=== PATIENT | female | born 1940 | race Caucasian/White ===

== ENCOUNTER 2016-10-03 12:47 | Emergency (ER) | payer OTHER, MEDICARE ==
[~2016-10-03] VITALS: Ht 160 cm; Wt 99.8 kg
[2016-10-03 13:14] LABS: ABSOLUTE BASOPHIL COUNT 0 /CUMM (0.0-0.2); ABSOLUTE EOSINOPHIL COUNT 0 /CUMM (0.0-0.7); ABSOLUTE LYMPH COUNT 0.6 /CUMM (1.2-3.4); ABSOLUTE MONOCYTE COUNT 0.5 /CUMM (0.10-0.60); BASOPHIL % 0 % (0.0-2.0); EOSINOPHIL % 0 % (0-5); GRANULOCYTE % 90.8 % (42.2-75.2); HEMATOCRIT 45.6 % (37-47); MEAN CORPUSCULAR HGB 29.3 PG (27.0-31.0); MEAN CORPUSCULAR HGB CONC 32.9 G/DL (33.0-37.0); MEAN PLATELET VOLUME 7.5 FL (7.4-10.4); PLATELET COUNT 213 /CUMM (130-400); RBC DISTRIBUTION WIDTH 13.6 % (11.5-14.5); RED BLOOD CELL CT 5.13 /CUMM (4.20-5.40)
--- NOTE | 2016-10-03 14:35 | ED GI/GU/ABDOMINAL COMPLAINT ---
History of Present Illness General Chief Complaint: Abdominal Pain/Flank Pain Stated Complaint: ABD PAIN +N Source: patient, family Exam Limitations: no limitations Vital Signs & Intake/Output Vital Signs & Intake/Output Vital Signs Date Time Temp Pulse Resp B/P Pulse O2 O2 Flow FiO2 Ox Delivery Rate 10/03 1443 98.5 56 18 177/81 96 Room Air 10/03 1258 96.6 805 20 160/85 97 Room Air Allergies Coded Allergies: NO KNOWN ALLERGIES (02/11/14) Reconcile Medications Amlodipine Besylate 5 MG TABLET 1 TAB PO QPM HEART (Reported) Esomeprazole (Nexium) 40 MG CAPSULE.DR 1 CAP PO DAILY GI (Reported) Fluticasone/Vilanterol (Breo Ellipta 100-25 Mcg INH) 100 MCG-25 MCG/DOSE BLST.W.DEV 1 INH PO DAILY BREATHING PROBLEMS (Reported) Furosemide 40 MG TABLET 1 TAB PO DAILY PRN WATER PILL (Reported) Losartan Potassium 100 MG TABLET 1 TAB PO DAILY HEART (Reported) Ondansetron (Zofran Odt) 4 MG TAB.RAPDIS 1 TAB SL TID PRN NAUSEA Potassium Chloride 20 MEQ TAB.ER.PRT 1 TAB PO DAILY SUPPLEMENT (Reported) Sulfasalazine (Sulfasalazine Dr) 500 MG TABLET.DR 2 TAB PO BID UNKNOWN ( Reported) Triage Note: PT TO ED C/O ABD PAIN, NAUSEA SINCE LAST NIGHT. STATES SHE ATE A DONUT THAT WAS IN THE FREEZER, AND THE PAIN STARTED SHORTLY AFTER. DENIES S/S. Triage Nurses Notes Reviewed? yes ? N Is pt currently ? No HPI: 76-year-old female with central abdominal pain that started last night after eating a donut that she had a freezer, it was a cream donut. Started in the middle the night with central abdominal pain is nonradiating, nausea and vomiting several times. She is passing gas and had small amount of loose bowel movement. Pain is currently radiating to the bilateral flank regions. No pain radiating into the back. No chest pain or shortness of breath. She has had a tactile fever and chills. Her symptoms are moderate, she has epigastric burning secondary to vomiting. No previous abdominal surgeries. Her symptoms are moderate. Past History Travel History Traveled to [place] past 21 day No Medical History Any Pertinent Medical History? see below for history Cardiovascular: hypertension Respiratory: asthma Surgical History Surgical History: non-contributory Psychosocial History What is your primary language Thai Tobacco Use: Never used ETOH Use: denies use Illicit Drug Use: denies illicit drug use Family History Hx Contributory? No Review of Systems Review of Systems Constitutional: Reports: see HPI. EENTM: Reports: no symptoms. Respiratory: Reports: no symptoms. Cardiovascular: Reports: no symptoms. GI: Reports: see HPI. Genitourinary: Reports: no symptoms. Musculoskeletal: Reports: no symptoms. Skin: Reports: no symptoms. Neurological/Psychological: Reports: no symptoms. Hematologic/Endocrine: Reports: no symptoms. Immunologic/Allergic: Reports: no symptoms. All Other Systems: Reviewed and Negative Physical Exam Physical Exam Respiratory: normal breath sounds, chest non-tender, no respiratory distress Cardiovascular: regular rate/rhythm Gastrointestinal: normal bowel sounds, soft, MILD GENERALIZED CENTRAL ABDOMINAL TENDERNESS IN THE PERIUMBILICAL REGION. nEGATIVE [place] SIGN, NO mCbURNEY'S POINT TENDERNESS. Comments: Well-developed well-nourished no apparent distress. HEENT: Atraumatic, extraocular motion intact Neck: Supple, no lymphadenopathy Back: Nontender Respiratory: No respiratory distress Extremities: No edema, full range of motion Neuro: Alert and oriented x3 Psych: Mood affect normal, normal memory normal judgment. Skin: Warm and dry, no rash on exposed skin Core Measures ACS in differential dx? No Severe Sepsis Present: No Septic Shock Present: No Progress Differential Diagnosis: AAA, AMI, appendicitis, biliary colic, bowel obstruction , colon cancer, cholecystitis, diverticulitis, ectopic , endometritis, esophageal varices, gastritis, hepatitis, hernia, hemorrhoids, ischemic bowel, inflamm bowel dis, intrauterine , kidney stone, Chantal-Ryan tear, ovarian cyst, ovarian torsion, pancreatitis, PID/cervicitis, peptic ulcer, PUD/ GERD, perforated viscous, SBO, threatened AB, UTI/pyelo Plan of Care: Orders Procedure Date/time Status Add-on Test (ER Only) 10/03 1351 Active Add-on Test (ER Only) 10/03 1330 Active MAGNESIUM 10/03 1303 Complete LIPASE 10/03 1303 Complete AMYLASE 10/03 1303 Complete COMPREHENSIVE METABOLIC PANEL 10/03 1257 Complete CBC WITHOUT DIFFERENTIAL 10/03 1257 Complete EKG 10/03 1249 Active Laboratory Tests 10/03/16 1303: Anion Gap 10, Estimated GFR > 60, BUN/Creatinine Ratio 21.4, Glucose 135 H, Calcium 9.2, Magnesium 1.8, Total Bilirubin 0.8, AST 28, ALT 40, Alkaline Phosphatase 107, Total Protein 7.3, Albumin 4.1, Globulin 3.2, Albumin/Globulin Ratio 1.3, Amylase 36, Lipase 103, CBC w Diff MAN DIFF ORDERED, RBC 5.13, MCV 89.0, MCH 29.3, RDW 13.6, MPV 7.5, Gran % 90.8 H, Lymphocytes % 5.0 L, Monocytes % 4.2, Eosinophils % 0, Basophils % 0 L, Absolute Granulocytes 10.0 H, Absolute Lymphocytes 0.6 L, Absolute Monocytes 0.5, Absolute Eosinophils 0, Absolute Basophils 0, Platelet Estimate ADEQUATE, Normocytic RBCs VERIFIED, Normochromic RBCs VERIFIED, PUBS MCHC 32.9 L Diagnostic Imaging: Viewed by Me: CT Scan. Discussed w/RAD: CT Scan. Radiology Impression: PATIENT: MARLEN HICKEY PRESENT AGE: 76 PATIENT ACCOUNT NO: [id number] : 41 LOCATION: [facility] ORDERING PHYSICIAN: KATE BARKSDALE SERVICE DATE: 10/03/16 EXAM TYPE : CAT - CT ABD & PELVIS W IV CONTRAST EXAMINATION: CT ABDOMEN AND PELVIS WITH CONTRAST CLINICAL INFORMATION: Pain. Nausea and vomiting. COMPARISON: None TECHNIQUE: Multidetector volumetric imaging was performed of the abdomen and pelvis before and after the IV administration of 94 mL of Optiray 320 intravenous contrast. Sagittal and coronal reformatted images were obtained on the technologist's workstation. DLP: 1287 mGy-cm FINDINGS: LUNG BASES: Bibasilar subsegmental atelectasis. Coronary artery calcifications noted. LIVER, GALLBLADDER, AND BILIARY TREE: The liver is normal in size, shape, and attenuation. There is a 0.5 cm hypoattenuating lesion in segment 5 of the liver which is too small to characterize. No additional focal hepatic lesion or biliary ductal dilatation is present. Gallstones are seen within the gallbladder lumen. No gallbladder wall thickening or pericholecystic fluid. PANCREAS: Small calcification seen along the body of the pancreas are likely vascular in nature. The pancreas is otherwise unremarkable. SPLEEN: Unremarkable. ADRENAL GLANDS: Unremarkable. KIDNEYS AND URETERS: The kidneys are normal in size, shape, and attenuation. No hydronephrosis, hydroureter, or calculi seen. No perinephric stranding. Mild cortical thinning at the lower pole of the right kidney. Subcentimeter hypoattenuating lesion at the upper pole of the right kidney is too small to characterize. BLADDER: Unremarkable. GASTROINTESTINAL TRACT: Small hiatal hernia. High attenuation material is seen within the gastric lumen, likely ingested. No bowel obstruction. There is no colonic wall thickening or inflammatory change. A majority of the colon is decompressed. No free air or free fluid. ABDOMINAL WALL: There is a ventral hernia containing fat and fluid. The abdominal wall defect measures 1.1 cm in CC dimension. LYMPH NODES: Normal. VASCULAR: Mild atherosclerotic calcifications. PELVIC VISCERA: The uterus is not seen. No adnexal mass. OSSEOUS STRUCTURES: No acute or suspicious osseous abnormality. Moderate multilevel degenerative changes are seen throughout the spine with multilevel vacuum disc phenomenon. Endplate osteophyte formation seen at multiple levels. Disc space narrowing is most prominent at T8-T9 and L1-L2 with endplate sclerosis present. IMPRESSION: No acute inflammatory findings of the abdomen or pelvis. No bowel obstruction. Ventral abdominal wall hernia containing fat and fluid. No lymphadenopathy. DICTATED BY: KARRI MARTINEZ,RAMIREZ DATE/TIME DICTATED:10/03/16 Initial ED EKG: NSR, rate (78), RBBB, no ST T wave changes Rhythm Strip: normal sinus rhythm Comments: Patient treated with IV fluids, IV Zofran and IV Protonix. We will obtain labs and ordered a CT scan. Patient still with some generalized abdominal pain, she is given Zofran and 30 mg IV after initial reevaluation. CT scan is unremarkable, labs show mild leftward shift, otherwise unremarkable. She has been reevaluated multiple times and is feeling better, she has no pain and no nausea. No abdominal tenderness reevaluation. She is stable for discharge home, recommend bland diet and nausea medication. She has an appointment to see her primary care doctor tomorrow coincidentally for another issue. She will return with worsening abdominal pain nausea vomiting or fever. Departure Departure Disposition: HOME OR SELF CARE Condition: Stable Clinical Impression Primary Impression: Gastroenteritis Referrals: MAMADOU MARTINEZ,SUN Moody (PCP/Family) Additional Instructions: Clear liquid diet for the next 12-24 hours. Advance as tolerated. Follow-up with primary care doctor tomorrow as scheduled. Take Zofran as needed for nausea. Return with worsening abdominal pain nausea vomiting or fever Departure Forms: Customer Survey General Discharge Information Prescriptions: Current Visit Scripts Ondansetron (Zofran Odt) 1 TAB SL TID PRN NAUSEA #15 TAB
[2016-10-03] MEDS ORDERED: LOSARTAN POTAS100 M1 PO (14:48)
[2016-10-03] MEDS ORDERED: POTASSIUM CHLO20 ME2 PO (14:48)
[2016-10-03] MEDS ORDERED: FUROSEMIDE40 M1 PO (14:49)
[2016-10-03] MEDS ORDERED: AMLODIPINE BESYL5 M1 PO (14:49)
[2016-10-03] MEDS ORDERED: NEXIUM40 M1 PO (14:49)
[2016-10-03] MEDS ORDERED: SULFASALAZINE500 M3 PO (14:50)
[2016-10-03] MEDS ORDERED: BREO ELLIPTA 11 EACH PO (14:50)
--- NOTE | 2016-10-03 14:52 | CT SCAN REPORT ---
EXAMINATION: CT ABDOMEN AND PELVIS WITH CONTRAST CLINICAL INFORMATION: Pain. Nausea and vomiting. COMPARISON: None TECHNIQUE: Multidetector volumetric imaging was performed of the abdomen and pelvis before and after the IV administration of 94 mL of Optiray 320 intravenous contrast. Sagittal and coronal reformatted images were obtained on the technologist's workstation. DLP: 1287 mGy-cm FINDINGS: LUNG BASES: Bibasilar subsegmental atelectasis. Coronary artery calcifications noted. LIVER, GALLBLADDER, AND BILIARY TREE: The liver is normal in size, shape, and attenuation. There is a 0.5 cm hypoattenuating lesion in segment 5 of the liver which is too small to characterize. No additional focal hepatic lesion or biliary ductal dilatation is present. Gallstones are seen within the gallbladder lumen. No gallbladder wall thickening or pericholecystic fluid. PANCREAS: Small calcification seen along the body of the pancreas are likely vascular in nature. The pancreas is otherwise unremarkable. SPLEEN: Unremarkable. ADRENAL GLANDS: Unremarkable. KIDNEYS AND URETERS: The kidneys are normal in size, shape, and attenuation. No hydronephrosis, hydroureter, or calculi seen. No perinephric stranding. Mild cortical thinning at the lower pole of the right kidney. Subcentimeter hypoattenuating lesion at the upper pole of the right kidney is too small to characterize. BLADDER: Unremarkable. GASTROINTESTINAL TRACT: Small hiatal hernia. High attenuation material is seen within the gastric lumen, likely ingested. No bowel obstruction. There is no colonic wall thickening or inflammatory change. A majority of the colon is decompressed. No free air or free fluid. ABDOMINAL WALL: There is a ventral hernia containing fat and fluid. The abdominal wall defect measures 1.1 cm in CC dimension. LYMPH NODES: Normal. VASCULAR: Mild atherosclerotic calcifications. PELVIC VISCERA: The uterus is not seen. No adnexal mass. OSSEOUS STRUCTURES: No acute or suspicious osseous abnormality. Moderate multilevel degenerative changes are seen throughout the spine with multilevel vacuum disc phenomenon. Endplate osteophyte formation seen at multiple levels. Disc space narrowing is most prominent at T8-T9 and L1-L2 with endplate sclerosis present. IMPRESSION: No acute inflammatory findings of the abdomen or pelvis. No bowel obstruction. Ventral abdominal wall hernia containing fat and fluid. No lymphadenopathy.
[2016-10-03] MEDS ORDERED: ZOFRAN ODT4 M1 SL (15:46)
[2016-10-03 16:00] VITALS: BP 148/80
== END 2016-10-03 16:02 ==
LOC: ERH 12:47
PROVIDERS: Physician Assistant Medical
DX: K52.9 Noninfective gastroenteritis and colitis, unspecified (principal)
CPT/HCPCS: 74177; 93005; 93010; 96361; 96374; 96375; J1885; J2405